=== PATIENT | male | born 1960 | race Caucasian/White ===

== ENCOUNTER 2021-09-28 01:52 | Day surgery (SDC) | payer OTHER ==
[~2021-09-28 01:52] MED LIST: FURO40 PO; METO25ER PO; Prinivil10 MG PO
== END 2021-09-28 12:00 | disposition home or self-care (01) ==
LOC: WOUND 01:52
DX: T23.321A Burn of third degree of single right finger (nail) except thumb, initial encounter (principal); T23.231A Burn of second degree of multiple right fingers (nail), not including thumb, initial encounter; X08.8XXA Exposure to other specified smoke, fire and flames, initial encounter
CPT/HCPCS: G0463

== ENCOUNTER 2021-10-05 03:04 | Day surgery (SDC) | payer OTHER | END 2021-10-05 23:06 | disposition home or self-care (01) | LOC: WOUND 03:04 | DX: T23.301A Burn of third degree of right hand, unspecified site, initial encounter (principal); T23.202A Burn of second degree of left hand, unspecified site, initial encounter; X08.8XXA Exposure to other specified smoke, fire and flames, initial encounter | CPT/HCPCS: G0463 ==

== ENCOUNTER → 2025-07-25 | Outpatient (CLI) | payer OTHER | LOC: LAB SHORT 08:33 → LAB 08:33 | DX: M71.10 Other infective bursitis, unspecified site (principal) | CPT/HCPCS: 87070; 87075; 87077; 87147; 87185; 87186; 87205 ==

== ENCOUNTER → 2025-09-28 | Outpatient (CLI) | payer OTHER | LOC: LAB 13:25 → LAB SHORT 13:25 | DX: L02.414 Cutaneous abscess of left upper limb (principal) | CPT/HCPCS: 87070; 87075; 87077; 87186; 87205 ==

== ENCOUNTER 2025-10-26 07:36 | Day surgery (SDC) | payer OTHER | END 2025-10-26 23:00 | disposition home or self-care (01) | LOC: WOUND 07:36 | DX: Z87.828 Personal history of other (healed) physical injury and trauma (principal); T23.031D Burn of unspecified degree of multiple right fingers (nail), not including thumb, subsequent encounter; M70.32 Other bursitis of elbow, left elbow; I11.0 Hypertensive heart disease with heart failure; I50.9 Heart failure, unspecified; E11.40 Type 2 diabetes mellitus with diabetic neuropathy, unspecified; X08.8XXD Exposure to other specified smoke, fire and flames, subsequent encounter; Z79.899 Other long term (current) drug therapy | CPT/HCPCS: G0463 ==